=== PATIENT | female | born 1975 | race Caucasian/White ===

== ENCOUNTER → 2024-03-29 07:47 | Outpatient (REF) | payer OTHER, SELFPAY ==
[2024-03-29 10:12] LABS: % Basophils 0.9 % (0-2); % Immature Granulocytes 0.2 % (0-0.5); % Lymphocytes 28.1 % (20.5-51.1); % Monocytes 10.1 % (1.7-9.3); % Neutrophils 54.7 % (42.2-75.2); Absolute Basophils 0.1 10^3/uL (0-0.2); Absolute Eosinophils 0.4 10^3/uL (0-0.7); Absolute Lymphocytes 1.6 10^3/uL (1.2-3.4); Absolute Monocytes 0.6 10^3/uL (0.1-0.6); Absolute Neutrophils 3.2 10^3/uL (1.4-6.5); Hematocrit 35.6 % (37.0-47.0); Mean Corp Hgb Conc. 33.7 g/dL (33.0-37.0); Mean Corpuscular Hgb 29.2 pg (27.0-31.0); Mean Corpuscular Volume 86.6 fL (81.0-99.0); Mean Platelet Volume 10.1 fL (7.4-10.4); Nucleated Red Blood Cells % 0 %; Platelet Count 295 10^3/uL (130-400); Red Blood Cell Count 4.11 10^6/uL (4.20-5.40); Red Cell Dist. Width 13.1 % (11.5-14.5); White Blood Cell Count 5.8 10^3/uL (4.8-10.8)
[2024-03-29 11:21] LABS: TSH 6.69 uIU/ml (0.47-4.68)
[2024-03-29 17:12] LABS: ALT (SGPT) 23 U/L (0-35); AST (SGOT) 23 U/L (14-36); Albumin 4.8 g/dl (3.5-5.0); Alkaline Phosphatase 57 U/L (38-126); Blood Urea Nitrogen 16 mg/dl (7-17); Calcium 9.4 mg/dl (8.4-10.2); Carbon Dioxide 19 mmol/L (22-30); Chloride 106 mmol/L (98-107); Glucose 95 mg/dl (70-99); HDL Cholesterol 64 mg/dl; LDL Cholesterol, Calculated 98 mg/dl; Potassium 4.4 mmol/L (3.5-5.1); Sodium 138 mmol/L (135-145); Total Bilirubin 0.6 mg/dl (0.2-1.3); Total Cholesterol 178 mg/dl (50-199); Total Protein 7.4 g/dl (6.3-8.2); Triglyceride 81 mg/dl (10-149); Very Low Density Lipoprotein 16 mg/dl (0-30); eGFR > 60.00
== END ==
LOC: HWLAB 07:47
PROVIDERS: ATTENDING PHYSICIAN Nurse Practitioner Adult Health
DX: Z00.00 Encounter for general adult medical examination without abnormal findings (principal)
CPT/HCPCS: 36415; 80053; 80061; 84443; 85025

== ENCOUNTER → 2024-11-01 09:44 | Outpatient (REF) | payer OTHER, SELFPAY | LOC: HWWDC 09:44 | PROVIDERS: ATTENDING PHYSICIAN Nurse Practitioner Adult Health | DX: Z12.31 Encounter for screening mammogram for malignant neoplasm of breast (principal) | CPT/HCPCS: 77063; 77067 ==